=== PATIENT | female | born 1985 | race Caucasian/White ===

== ENCOUNTER → 2016-10-24 | Outpatient (CLI) | payer OTHER ==
--- NOTE | 2016-10-24 16:16 | DX ---
Cervical Spine, Three Views History: Trauma. Pain. Date of injury October 15, 2016, M54.9 Findings: Alignment is anatomic. Disk spaces are well maintained. There is no prevertebral soft tissu e swelling. There could possibly be a small nondisplaced corner fracture of the posterior inferiorC7 vertebral body. The cervical thoracic junction is normally aligned.. Impression: Potentially a small C7 corner fracture. If confirmation is important, then consider nonco ntrast CT or MRI..
== END ==
LOC: BRMIMAGING 12:04
PROVIDERS: ATTEND Registered Nurse
DX: S12.9XXA Fracture of neck, unspecified, initial encounter (principal)
CPT/HCPCS: 72040-PO